=== PATIENT | male | born 1990 | race Caucasian/White ===

== ENCOUNTER 2019-01-13 16:26 | Emergency (ER) | payer MEDICAID ==
[~2019-01-13] VITALS: Ht 182.9 cm; Wt 91.4 kg
[2019-01-13 16:30] VITALS: BP 163/74; PULSE 68; RESP 18; Ht 182.9 cm; Wt 91.4 kg
[2019-01-13] MEDS ORDERED: BACITRACIN 0.9 GM OINT TOP ONE (19:30)
--- NOTE | 2019-01-13 22:41 | ERD ---
ER Documentation Chief Complaint Chief Complaint pt c/o loss of appetite, diarrhea, fever, testicular swelling (had US ) HPI 28 year-old [male] coming in today with Chief Complaint: Decreased appetite, weight loss, diarrhea History of Present Illness: Patient reports recent ultrasound for testicular swelling, findings showing fluid. Patient with no immediate or change in condition since ultrasound results. Patient reports symptoms of fatigue. Symptoms include loss of appetite, weight, mucus diarrhea, chills, sweats; denie s blood in stool. Pt reports being told possible Crohn's disease, colonoscopy 5 years ago was negative. Patient shows increased concern due to immediate family member having colon cancer. Patient with history of spermatocele. Patient reports weighing approximately 210 pounds 2 weeks ago, down 10 pounds currently. Review of systems: All systems were reviewed and are negative except for what is indicated in the history of present illness. Past Medical History: Gilbert's disease Social History: [Patient denies tobacco, alcohol]; positive marijuana Medications: [None] Allergies: [NKDA] Social Concerns: Denies ROS All systems reviewed and are negative except as per history of present illness. Allergies Allergies: Coded Allergies: No Known Allergy (Unverified , 01/13/19) PMhx/Soc Hx Miscellaneous Medical Probl: Yes (Gilbert's syndrome) Hx Alcohol Use: No Hx Substance Use: Yes (marijuana) Hx Tobacco Use: No Smoking Status: Never smoker FmHx Family History: No diabetes, No coronary disease Physical Exam Vitals Vital Signs Date Temp Pulse Resp B/P (MAP) Pulse Ox O2 O2 Flow FiO2 Time Delivery Rate 01/13/19 97.5 68 18 163/74 99 16:30 (103) Physical Exam Const: No acute distress Head: Atraumatic Eyes: Normal Conjunctiva; no yellowing noted ENT: Normal External Ears, Nose and Mouth. Neck: Full range of motion. No meningismus. Resp: Clear to auscultation bilaterally Cardio: Regular rate and rhythm, no murmurs Abd: Soft, non tender, non distended. Normal bowel sounds Skin: No petechiae or rashes Back: No midline or flank tenderness Ext: No cyanosis, or edema Neur: Awake and alert Psych: Normal Mood and Affect Result Diagram: 01/13/19183301/13/194 Results 24 hrs Laboratory Tests Test 2/17/19 18:34 White Blood Count 3.3 10^3/ul Red Blood Count 5.59 10^6/ul Hemoglobin 16.0 g/dl Hematocrit 48.3 % Mean Corpuscular Volume 86.4 fl Mean Corpuscular Hemoglobin 28.6 pg Mean Corpuscular Hemoglobin Concent 33.1 g/dl Red Cell Distribution Width 11.5 % Platelet Count 231 10^3/UL Mean Platelet Volume 10.0 fl Immature Granulocytes % 0.000 % Neutrophils % 59.4 % Lymphocytes % 31.5 % Monocytes % 7.0 % Eosinophils % 1.2 % Basophils % 0.9 % Nucleated Red Blood Cells % 0.0 /100WBC Immature Granulocytes # 0.000 10^3/ul Neutrophils # 2.0 10^3/ul Lymphocytes # 1.0 10^3/ul Monocytes # 0.2 10^3/ul Eosinophils # 0.0 10^3/ul Basophils # 0.0 10^3/ul Nucleated Red Blood Cells # 0.0 10^3/ul Sodium Level 142 mmol/L Potassium Level 4.2 mmol/L Chloride Level 98 mmol/L Carbon Dioxide Level 31 mmol/L Anion Gap 13 Blood Urea Nitrogen 8 mg/dl Creatinine 0.98 mg/dl Est Glomerular Filtrat Rate mL/min > 60 mL/min Glucose Level 90 mg/dl Calcium Level 10.1 mg/dl Total Bilirubin 2.6 mg/dl Direct Bilirubin 0.00 mg/dl Indirect Bilirubin 2.6 mg/dl Aspartate Amino Transf (AST/SGOT) 23 IU/L Alanine Aminotransferase (ALT/SGPT) 39 IU/L Alkaline Phosphatase 83 IU/L Total Protein 7.9 g/dl Albumin 4.7 g/dl Globulin 3.20 g/dl Albumin/Globulin Ratio 1.46 Current Medications Medications Dose Sig/Cortney Start Time Status Last (Trade) Ordered Route PRN Stop Time Admin Dose Reason Admin Bacitracin 1 applic ONCE ONCE 01/13/19 DC (Bacitracin TOP 19:30 Oint (Ud)) 01/13/19 19:31 Procedures/MDM Patient with complaint of weight loss, loss of appetite. Patient denies actual subjective fever at home, symptoms of chills and sweating. OTC meds for fever. ED course includes a thorough examination and history and laboratory test for hematology and chemistry. Otherwise healthy patient presenting with chronic abdominal symptoms, with now presenting with symptoms of weight loss, loss of appetite, no diarrhea. No respiratory distress, otherwise relatively well appearing and nontoxic. Patient is tolerating p.o. fluids and food. Patient educated on diagnoses, prescriptions, follow-up care, return precautions. Strict return precautions given for worsening condition; questions answered discharge. No signs of medical abdominal emergency. Disposition for discharge with followup in 2-3 days with PCP/clinic in additional referral to gastroenterology to further investigate low white blood cell count and high bilirubin. Departure Diagnosis: Primary Impression: Hyperbilirubinemia Additional Impression: Leukopenia Leukopenia type: unspecified Qualified Codes: D72.819 - Decreased white blood cell count, unspecified Condition: Stable Patient Instructions: Jaundice (Adult), White Cell Count Referrals: [facility] () Iman se sorensen hecho un examen mdico de control que le indica que no est en tayo condicin que requiera tratamiento urgente en el Departamento de Emergencia. Un estudio ms profundo y el tratamiento de chu condicin pueden esperar sin ningn riesgo hasta que usted sea atendida/o en el consultorio de chu mdico o tayo clnica. Es responsabilidad suya arreglar tayo dhruv para el seguimiento del sandra. MANEJO DE CONDICIONES NO URGENTES EN EL FUTURO 1) Si usted tiene un mdico de atencin primaria: Usted debera llamar a chu mdico de atencin primaria antes de venir al departamento de emergencia. Despus de las horas de consultorio, chu doctor o chu asociado/a est disponible por telfono. El mdico o enfermero de dorian en el servicio telefnico puede asesorarle por sonny medio para atender el problema, o sandra contrario se puede programar tayo dhruv. 2) Si usted no tiene un mdico de atencin primaria: Llame al mdico o clnica de referencia que aparece abajo shakeel las horas de consultorio para hacer tayo dhruv para que le vean. CLINICAS: [facility] [phone] [place] [facility] [phone] [facility] [phone] [facility] [phone] [facility] [phone] [id number] [facility] [phone] [address] [facility] [facility] YOU HAVE RECEIVED A MEDICAL SCREENING EXAM AND THE RESULTS INDICATE THAT YOU DO NOT HAVE A CONDITION THAT REQUIRES URGENT TREATMENT IN THE EMERGENCY DEPARTMENT. FURTHER EVALUATION AND TREATMENT OF YOUR CONDITION CAN WAIT UNTIL YOU ARE SEEN IN YOUR DOCTORS OFFICE WITHIN THE NEXT 1-2 DAYS. IT IS YOUR RESPONSIBILITY TO MAKE AN APPOINTMENT FOR FOLOW-UP CARE. IF YOU HAVE A PRIMARY DOCTOR --you should call your primary doctor and schedule and appointment IF YOU DO NOT HAVE A PRIMARY DOCTOR YOU CAN CALL OUR PHYSICIAN REFERRAL HOTLINE AT . IF YOU CAN NOT AFFORD TO SEE A PHYSICIAN YOU CAN CHOSE FROM THE FOLLOWING [facility] INSTITUTIONS: [facility] [address] [place] [address] [facility] [address] [place] [address] [facility] [address] [place] [address] Additional Instructions: Call your primary care doctor TOMORROW for an appointment during the next 1 WEEK.Tell the payroll secretary that you were referred from this facility.See the doctor sooner or return here if your condition worsens before your appointment time. You need to be seen my GI doctor (gastroenterolgy); and establish care with primary care doctor for further work up. OZZY BRANHAM NP Jan 13, 2019 22:41
== END 2019-01-13 20:10 | disposition home or self-care (01) ==
LOC: FTE 16:26
DX: E80.6 Other disorders of bilirubin metabolism (principal); D72.819 Decreased white blood cell count, unspecified
CPT/HCPCS: 36415; 80053; 80076; 85025; Z7502; 99283